=== PATIENT | male | born 1980 | race African-American/Black ===

== ENCOUNTER 2024-10-05 09:26 | Inpatient (IN) | payer SELFPAY ==
[~2024-10-05] VITALS: Ht 182.9 cm; Wt 150.1 kg
[2024-10-05] MEDS: SODIUM CHLORIDE 0.9% (SEPSIS BOLUS) IV ONE (10:15)
[2024-10-05 10:20] LABS: BASOPHILS % 0.4 % (0.0-2.0); DIFFERENTIAL COMMENT 0; EOSINOPHILS % 1.2 % (0.0-5.0); HEMATOCRIT. 38.5 % (42.0-52.0); LYMPHOCYTES % 8.7 % (20.0-50.0); MEAN CORPUSCULAR HEMOGLOBIN 24.5 pg (28.0-32.0); MEAN CORPUSCULAR HGB CONC 31.2 g/dL (31.0-37.0); MEAN CORPUSCULAR VOLUME 78.4 fL (80.0-94.0); MEAN PLATELET VOLUME 7.7 fl (7.4-10.4); MONOCYTES % 8.2 % (2.0-8.0); NEUTROPHILS % 81.5 % (40.0-76.0); PLATELET 356 x1000/uL (130-400); RED BLOOD CELL COUNT 4.91 mill/uL (4.7-6.1); RED CELL DISTRIBUTION WIDTH 16.6 % (11.6-14.6); WHITE BLOOD COUNT 15.3 x1000/uL (4.5-11.0)
[2024-10-05 10:31] LABS: CHLORIDE 104 mEq/L (98-107); SODIUM 138 mEq/L (136-145)
[2024-10-05 10:32] LABS: CALCIUM 8.8 mg/dL (8.7-10.4); CARBON DIOXIDE 25 mEq/L (21-32)
[2024-10-05] MEDS: LEVOFLOXACIN 750MG PREMIX 150 ML IV ONE (10:32)
[2024-10-05] MEDS: IBUPROFEN 600MG TABLET PO STA (10:32)
[2024-10-05] MEDS: ACETAMINOPHEN 325MG TABLET PO STA (10:32)
[2024-10-05 10:37] LABS: CREATININE 1.7 mg/dL (0.6-1.3); GLUCOSE 107 mg/dL (70-105); UREA NITROGEN BLOOD 19 mg/dL (9-23)
[2024-10-05 10:38] LABS: TROPONIN I HIGH SENSITIVITY 33 ng/L (3.0-53)
[2024-10-05 10:39] LABS: ALANINE AMINOTRANSFERASE 23 IU/L (10-49); ALBUMIN 4.3 g/dL (3.2-4.8); ASPARTATE AMINOTRANSFERASE 14 IU/L (<34); BILIRUBIN DIRECT 0.2 mg/dL (<=3.0); BILIRUBIN TOTAL 0.8 mg/dL (0.1-1.0); PROTEIN TOTAL 8.2 g/dL (6.0-8.3)
[2024-10-05 14:17] LABS: CLARITY URINE CLOUDY (CLEAR); COLOR URINE DARK YELLOW (YELLOW); GLUCOSE URINE NEGATIVE (NEGATIVE); KETONES URINE NEGATIVE (NEGATIVE); LEUKOCYTE ESTERASE URINE 3+ (NEGATIVE); NITRITE URINE POSITIVE (NEGATIVE); OCCULT BLOOD URINE 2+ (NEGATIVE); PH URINE 5.5 (4.5-8.0); PROTEIN URINE 1+ (NEGATIVE)
[2024-10-05 14:26] LABS: SQUAMOUS EPITHELIAL CELL URINE RARE /lpf (RARE/1+)
[2024-10-05 14:27] LABS: BACTERIA URINE 1+
[2024-10-05 14:29] LABS: WBC URINE TNTC /hpf (0-2)
[2024-10-05] MEDS ORDERED: ONDANSETRON HCL 4MG/2ML INJ IV PRN (15:15)
[2024-10-05] MEDS ORDERED: GUAIFENESIN 200MG/10ML SUGAR FREE UDC PO PRN (15:15)
[2024-10-05] MEDS ORDERED: CEFTRIAXONE 2GM/50ML 50 ML IV SCH (15:15)
[2024-10-05] MEDS ORDERED: DIPHENHYDRAMINE 50MG/ML VIAL IV PRN (15:15)
[2024-10-05] MEDS ORDERED: ACETAMINOPHEN 325MG TABLET PO PRN (15:15)
[2024-10-05] MEDS ORDERED: IPRATROPIUM/ALBUTEROL 0.5-3(2.5)MG/3ML NEB HHN PRN (15:30)
[2024-10-05] MEDS: AMLODIPINE 10MG TABLET PO SCH (15:53)
[2024-10-05] MEDS: TAMSULOSIN HCL 0.4MG SR CAPSULE PO SCH (15:54)
[2024-10-05] MEDS: SODIUM CHLORIDE 0.9% 1,000 ML IV SCH (15:57)
[2024-10-05 16:00] VITALS: BP 158/87; PULSE 94; RESP 20; TEMP 36.8; O2SAT 95
[2024-10-05 16:10] VITALS: BP 158/87; PULSE 94; RESP 20; TEMP 36.8
[2024-10-05] MEDS ORDERED: SPIR25TA6 PO (19:21)
[2024-10-05] MEDS ORDERED: HYDR25TA78 PO (19:21)
[2024-10-05] MEDS ORDERED: ISOS30TA91 PO (19:21)
[2024-10-05] MEDS ORDERED: ATOR-2 PO (19:21)
[2024-10-05] MEDS ORDERED: CARV25TA47 PO (19:21)
[2024-10-05] MEDS ORDERED: CLOP75TA33 PO (19:21)
[2024-10-05 20:00] VITALS: BP 153/82; PULSE 105; RESP 17; TEMP 36.2; O2SAT 95
[2024-10-05] MEDS ORDERED: ATORVASTATIN CALCIUM 20MG TABLET PO SCH (21:00)
[2024-10-05] MEDS: ACETAMINOPHEN 325MG TABLET PO PRN (21:14)
[2024-10-05] MEDS: ATORVASTATIN CALCIUM 20MG TABLET PO SCH (21:15)
[2024-10-06] VITALS (8 sets, daily range): BP systolic 132–180; BP diastolic 60–95; PULSE 87–107; RESP 17–18; TEMP 36.3–36.8; O2SAT 94–98
[2024-10-06 00:55] LABS: CREATINE KINASE MB FRACTION 1.5 ng/mL (0.5-3.6)
[2024-10-06] MEDS: CLONIDINE 0.1MG TABLET PO PRN (04:45)
[2024-10-06 07:29] LABS: BASOPHILS % 0.3 % (0.0-2.0); DIFFERENTIAL COMMENT 0; EOSINOPHILS % 1.3 % (0.0-5.0); HEMATOCRIT. 33.4 % (42.0-52.0); HEMOGLOBIN. 10.8 g/dL (14.0-18.0); MEAN CORPUSCULAR HEMOGLOBIN 24.9 pg (28.0-32.0); MEAN CORPUSCULAR HGB CONC 32.2 g/dL (31.0-37.0); MEAN CORPUSCULAR VOLUME 77.2 fL (80.0-94.0); MEAN PLATELET VOLUME 7.7 fl (7.4-10.4); MONOCYTES % 14.5 % (2.0-8.0); NEUTROPHILS % 72.9 % (40.0-76.0); PLATELET 320 x1000/uL (130-400); RED BLOOD CELL COUNT 4.33 mill/uL (4.7-6.1); RED CELL DISTRIBUTION WIDTH 16.6 % (11.6-14.6); WHITE BLOOD COUNT 16.8 x1000/uL (4.5-11.0)
[2024-10-06 07:42] LABS: CARBON DIOXIDE 23 mEq/L (21-32); CHLORIDE 106 mEq/L (98-107); POTASSIUM 3.9 mEq/L (3.5-5.1); SODIUM 139 mEq/L (136-145)
[2024-10-06 07:43] LABS: CALCIUM 8.4 mg/dL (8.7-10.4)
[2024-10-06 07:48] LABS: CREATINE KINASE MB FRACTION 1.5 ng/mL (0.5-3.6); CREATININE 1.5 mg/dL (0.6-1.3); GLUCOSE 113 mg/dL (70-105); TRIGLYCERIDE 93 mg/dL (0-150); UREA NITROGEN BLOOD 17 mg/dL (9-23)
[2024-10-06 07:49] LABS: LDL CHOLESTEROL 51 mg/dL (5-100)
[2024-10-06 07:50] LABS: CHOLESTEROL 91 mg/dL (<200); HDL CHOLESTEROL 20 mg/dL (>55)
[2024-10-06 07:51] LABS: T4 FREE 0.87 ng/dL (0.89-1.76); THYROID STIMULATING HORMONE 0.79 uIU/mL (0.55-4.78)
[2024-10-06 08:41] LABS: *AMPHETAMINES SCREEN URINE NEGATIVE (NEGATIVE); *BARBITURATES SCREEN URINE NEGATIVE (NEGATIVE); *BENZODIAZEPINES SCREEN URINE NEGATIVE (NEGATIVE); *COCAINE SCREEN URINE NEGATIVE (NEGATIVE); CANNABINOID URINE SCREEN NEGATIVE (NEGATIVE); ECSTASY MDMA SCREEN URINE NEGATIVE (NEGATIVE); METHADONE URINE SCREEN NEGATIVE (NEGATIVE); OPIATES URINE SCREEN PRESUMPTIVE POSITIVE (NEGATIVE); PHENCYCLIDINE URINE SCREEN NEGATIVE (NEGATIVE)
[2024-10-06] MEDS: ISOSORBIDE MONONITRATE 30MG TABLET SR 24HR PO SCH (08:41)
[2024-10-06] MEDS: CLOPIDOGREL 75MG TABLET PO SCH (08:41)
[2024-10-06] MEDS: SPIRONOLACTONE 25MG TABLET PO SCH (08:42)
[2024-10-06] MEDS: CARVEDILOL 12.5MG TABLET PO SCH (08:43)
[2024-10-06] MEDS: LEVOFLOXACIN 750MG PREMIX 150 ML IV SCH (09:10)
[2024-10-06] MEDS: DOCUSATE SODIUM 100MG CAPSULE PO PRN (20:38)
[2024-10-07] VITALS: BP 128/63; PULSE 85; RESP 18; TEMP 36.5; O2SAT 98
[2024-10-07 04:00] VITALS: BP 129/60; PULSE 85; RESP 18; TEMP 36.5; O2SAT 98
[2024-10-07 07:20] LABS: CALCIUM 8.6 mg/dL (8.7-10.4); POTASSIUM 4.1 mEq/L (3.5-5.1)
[2024-10-07 07:26] LABS: CREATININE 1.7 mg/dL (0.6-1.3)
[2024-10-07 07:37] LABS: HEMATOCRIT. 33.8 % (42.0-52.0); HEMOGLOBIN. 10.7 g/dL (14.0-18.0); MEAN CORPUSCULAR HEMOGLOBIN 24.5 pg (28.0-32.0); MEAN CORPUSCULAR HGB CONC 31.8 g/dL (31.0-37.0); MEAN PLATELET VOLUME 7.7 fl (7.4-10.4); PLATELET 313 x1000/uL (130-400); RED BLOOD CELL COUNT 4.39 mill/uL (4.7-6.1); RED CELL DISTRIBUTION WIDTH 16.3 % (11.6-14.6); WHITE BLOOD COUNT 12.4 x1000/uL (4.5-11.0)
[2024-10-07 08:00] VITALS: BP 155/90; PULSE 81; RESP 18; TEMP 36.7; O2SAT 98
[2024-10-07 08:11] LABS: DIFFERENTIAL COMMENT 1
[2024-10-07] MEDS: MAGNESIUM/ALUMINUM HYDROXIDE/SIMETHICONE 30ML UDC PO PRN (08:54)
[2024-10-07] MEDS ORDERED: LEVO750T68 MT (11:36)
[2024-10-07 11:43] VITALS: BP 145/93; PULSE 82; TEMP 97.5; O2SAT 98
[2024-10-07 12:00] VITALS: BP 155/95; PULSE 81; RESP 14; TEMP 36.8; O2SAT 96
[2024-10-07] MEDS ORDERED: SPIR25TA6 MT (12:27)
[2024-10-07] MEDS ORDERED: HYDR25TA78 MT (12:27)
[2024-10-07] MEDS ORDERED: ISOS30TA91 MT (12:27)
[2024-10-07] MEDS ORDERED: CLOP-31 MT (12:27)
[2024-10-07] MEDS ORDERED: ATOR-2 MT (12:27)
[2024-10-07] MEDS ORDERED: CARV25TA47 MT (12:27)
[2024-10-07] MEDS ORDERED: TAMS-54 MT (12:27)
[2024-10-07 12:40] VITALS: BP 145/93; PULSE 82; TEMP 97.5; O2SAT 98
[2024-10-07 14:31] LABS: ANISOCYTOSIS 1+; MICROCYTOSIS 1+; PLATELET ESTIMATE NORMAL
[2024-10-07 17:07] LABS: CHLAMYDIA TRACHOMATIS NAA Negative (Negative); NEISSERIA GONORRHOEAE NAA Negative (Negative)
== END 2024-10-07 13:05 | disposition home or self-care (01) | DRG 720 ==
LOC: ER 09:26 → 5WST 14:06 → EDBEDREQ 14:14
PROVIDERS: ADMIT Internal Medicine; ATTEND Internal Medicine
DX: A41.9 Sepsis, unspecified organism (principal); N17.9 Acute kidney failure, unspecified; E78.00 Pure hypercholesterolemia, unspecified; F17.210 Nicotine dependence, cigarettes, uncomplicated; I25.10 Atherosclerotic heart disease of native coronary artery without angina pectoris; N43.3 Hydrocele, unspecified; I10 Essential (primary) hypertension; N39.0 Urinary tract infection, site not specified; Z95.1 Presence of aortocoronary bypass graft; Z95.5 Presence of coronary angioplasty implant and graft; Z88.0 Allergy status to penicillin; Z79.02 Long term (current) use of antithrombotics/antiplatelets; Z79.899 Other long term (current) drug therapy
CPT/HCPCS: 36415; 71045; 76770; 76870; 80048; 80061; 80076; 80305; 81003; 82550; 82553; 82962; 83605; 83880; 84145; 84439; 84443; 84484; 85025; 86850; 86900; 87077; 87186; 87491; 87591; 93005; 93976; 99285; A4606; J1956; J7030